=== PATIENT | male | born 1950 | race Caucasian/White ===

== ENCOUNTER 2016-11-19 00:47 | Day surgery (SDC) | payer MEDICARE, OTHER ==
[~2016-11-19] VITALS: Ht 180.3 cm; Wt 83.9 kg
[~2016-11-19 00:47] MED LIST: AMLO5TAB2 PO; CYAN500L3 PO; OMEP20TA24 PO
[2016-11-19] MEDS ORDERED: 0.9% Sodium Chloride 1,000 ML IV PRN (07:12)
[2016-11-19] MEDS ORDERED: Sodium Chloride LOK Flush 10 mL Syringe IV PRN (07:15)
[2016-11-19] MEDS ORDERED: fentaNYL-PF 50 mCg/mL 2 mL Inj IVPUSH PRN (07:15)
[2016-11-19 08:18] VITALS: BP 127/97; PULSE 98; RESP 14; O2SAT 98
[2016-11-19 09:19] VITALS: BP 116/72; PULSE 92; RESP 16; O2SAT 96
[2016-11-19 09:26] VITALS: BP 121/82; PULSE 97; RESP 16; O2SAT 96
[2016-11-19 09:33] VITALS: BP 131/88; PULSE 86; RESP 16; O2SAT 96
--- NOTE | 2016-11-19 09:49 | ENDO ---
[address] [address] ENDOSCOPY PROCEDURE PATIENT: CHIO STONE : 1950 MR#: [id number] ADMIT: 11/19/2016 JOB ID: [id number] PRIMARY PROVIDER: Timoteo Jay MD PROCEDURE: Colonoscopy with biopsies. INDICATIONS: A 66-year-old male with a personal history of colon cancer and Crohn's, returning for surveillance. At last exam, he had some anastomotic inflammation and a couple of polyps in the descending colon. EQUIPMENT: [employer]fish [employer]-H180-AL. SEDATION: 5 mg Versed, 100 mcg fentanyl. COMPLICATIONS: None identified. BOWEL PREPARATION: Fair, adequate exam. PROCEDURE INFORMATION: After the risks and benefits were explained, written and verbal informed consent was obtained. The patient was brought into the endoscopy suite and placed into the left lateral decubitus position. Sedation was achieved using the above-stated medications with the addition of oxygen via nasal cannula. A digital rectal examination was accomplished. Mild internal hemorrhoids were noted. No other significant pathology appreciated. The scope was introduced into the rectum and advanced under direct visualization to the anastomosis in the right colon. The neoterminal ileum was interrogated and appeared normal. The scope was then slowly withdrawn to carefully examine the mucosa for any defects or lesions. Retroflexed views were accomplished in the rectum. The colon was decompressed, the scope removed from the patient who tolerated the procedure well. FINDINGS: There was obvious ulcerative inflammatory-appearing mucosa all about the anastomosis. There was no evidence of any stricturing or stenosis. I was easily able to navigate into the neoterminal ileum. Multiple photographs were taken. A couple of biopsies were taken from the inflammatory sections. In the neocecum, there was a small focus of inflammatory nodularity, and this was biopsied x1. I did not see any overt macroscopic colitis throughout the remainder of the colon. Random biopsies were therefore taken from the "right colon," transverse, descending, and rectosigmoid. These were all submitted separately for histopathologic analysis. In the rectum, there was an inflammatory element of nodularity right approaching the dentate line, and this area was targeted for biopsy as well and submitted separately. ENDOSCOPIC DIAGNOSES: 1. Right hemicolectomy anastomotic inflammation. 2. Perianal nodular inflammation. RECOMMENDATIONS: 1. Await histopathology. 2. As long as there are no concerning histologic features from the biopsy in the rectum in particular, repeat colonoscopy for surveillance will likely be recommended for one year. 3. We had a discussion once again about controlling the inflammatory aspect of his disease, and the patient is presently not interested in medical intervention, in that his clinical symptoms are not bothersome in any way to him. 4. The patient will be offered a clinical followup to discuss this further in the office setting.
--- NOTE | 2016-11-20 14:26 | PATH ---
SURGICAL PATHOLOGY Attending Physician:Rosamaria Reeves CASE STATUS: Signed Out PATIENT NAME: CHIO STONE PID: [id number] : 1950 DATE COLLECTED:11/19/2016 17:00 SPECIMEN: 1: Colon, Biopsy 2: Colon, Biopsy 3: Colon, Biopsy 4: Colon, Biopsy 5: Colon, Biopsy 6: Colon, Biopsy 7: Rectum, Biopsy CLINICAL HISTORY: 1.ANASTAMOSIS SITE BX 2.FATIMAH CECUM BX 3.RIGHT COLON BX 4.TRANSVERSE COLON BX 5.DESCENDING COLON BX 6.RECTO SIGMOID COLON BX 7.DISTAL RECTAL BX FINAL DIAGNOSIS: 1.ANASTOMOSIS SITE BIOPSY: SMALL BOWEL MUCOSA WITH MODERATE CHRONIC ACTIVE INFLAMMATION. Negative for granulomas. Negative for dysplasia and malignancy. 2.FATIMAH CECUM BIOPSY: SMALL BOWEL MUCOSA WITH MODERATE CHRONIC ACTIVE INFLAMMATION. Negative for granulomas. Negative for dysplasia and malignancy. 3.RIGHT COLON BIOPSY: COLONIC MUCOSA WITH MILD REACTIVE CHANGES. Negative for dysplasia and malignancy. 4.TRANSVERSE COLON BIOPSY: COLONIC MUCOSA WITH MILD REACTIVE CHANGES. Negative for dysplasia and malignancy. 5.DESCENDING COLON BIOPSY: COLONIC MUCOSA WITH MILD REACTIVE CHANGES. Negative for dysplasia and malignancy. 6.RECTOSIGMOID COLON BIOPSY: COLONIC MUCOSA WITH MILD REACTIVE CHANGES. Negative for dysplasia and malignancy. 7.DISTAL RECTAL BIOPSY: COLONIC MUCOSA WITH EROSION, MILD CHRONIC ACTIVE INFLAMMATION, AND REACTIVE CHANGES. Negative for dysplasia and malignancy. ICD10 code K52.9 GROSS DESCRIPTION: The specimen is received in seven formalin filled containers labeled with the patient's name. 1). The specimen is sublabeled "anastomosis site" and consists of 2 portions of tissue which aggregate to 0.3 x 0.3 x 0.2 CM. The specimen is entirely submitted in cassette 1A. 2). The specimen is sublabeled "fatimah-cecum" and consists of a 0.3 x 0.2 x 0.2 CM portion of tissue which is entirely submitted in cassette 2A. 3). The specimen is sublabeled "right colon" and consists of 2 portions of tissue which aggregate to 0.3 x 0.3 x 0.2 CM. The specimen is entirely submitted in cassette 3A. 4). The specimen is sublabeled "transverse colon" and consists of 2 portions of tissue which aggregate to 0.3 x 0.2 x 0.2 CM. The specimen is entirely submitted in cassette 4A. 5). The specimen is sublabeled "descending colon" and consists of 2 portions of tissue which aggregate to 0.3 x 0.3 x 0.2 CM. The specimen is entirely submitted in cassette 5A. 6). The specimen is sublabeled "rectal sigmoid colon" and consists of 2 portions of tissue which aggregate to 0.3 x 0.3 x 0.2 CM. The specimen is entirely submitted in cassette 6A. 7). The specimen is sublabeled "distal rectal" and consists of a 0.2 x 0.2 x 0.2 CM portion of tissue which is entirely submitted in cassette 7A. 11/19/2016 DAC MICRO DESCRIPTION: See diagnosis. ICD-9 CODES: CPT CODES: 1: 61965 2: 27585 3: 27781 4: 77674 5: 79687 6: 75985 7: 37289 Electronically Signed Out Aranza Mae MD [facility], [place] [address] Technical component performed at [facility], [facility] [address], [address]
== END 2016-11-19 23:59 | disposition home or self-care (01) ==
LOC: END 00:47
PROVIDERS: ATTEND Internal Medicine Gastroenterology
DX: Z12.11 Encounter for screening for malignant neoplasm of colon (principal); K63.89 Other specified diseases of intestine; R22.2 Localized swelling, mass and lump, trunk; Z85.038 Personal history of other malignant neoplasm of large intestine; K50.90 Crohn's disease, unspecified, without complications
CPT/HCPCS: 45380; 88305; 99153; G0500; J2250; J3010; J7030